=== PATIENT | male | born 1995 | race African-American/Black ===

== ENCOUNTER 2016-09-11 17:12 | Emergency (ER) | payer OTHER ==
[~2016-09-11] VITALS: Ht 167.6 cm; Wt 68.2 kg
[2016-09-11 17:16] VITALS: TEMP 97.2
[2016-09-11 18:27] LABS: INFLUENZA B NEGATIVE
[2016-09-11] MEDS ORDERED: TYLENOL W/COD1 UDTAB PO (18:30)
[2016-09-11] MEDS ORDERED: BENADRYL25 M2 PO (18:30)
[2016-09-11] MEDS ORDERED: SUDAFED30 MG PO (18:30)
[2016-09-11] MEDS ORDERED: ZITHROMAX 250M250 MG PO (18:39)
[2016-09-11 18:48] VITALS: BP 122/70; PULSE 86
== END 2016-09-11 18:48 | disposition home or self-care (01) ==
LOC: COL.ER 17:12
PROVIDERS: Emergency Medicine
DX: J06.9 Acute upper respiratory infection, unspecified (principal)